=== PATIENT | female | born 1940 | race Caucasian/White ===

== ENCOUNTER → 2016-06-19 | Outpatient (CLI) | payer MEDICARE, BC ==
--- NOTE | 2016-06-19 12:33 | RADRPT ---
AMENDMENT: 06/19/2016 12:34:04 PM Hiram Morrison) Impression: Diffuse osteopenia. No change in mildly distracted mid patellar fracture Comparison: 05/29/2016 PROCEDURE: XR left knee. CLINICAL INDICATION: Pain/fracture TECHNIQUE: AP and lateral weightbearing views available for review. COMPARISON: None available FINDINGS: There is diffuse osteopenia. There is no change in the mildly distracted mid patellar fracture. No osseous lesions are identified. The joints are unremarkable. The soft tissues are unremarkable. IMPRESSION: Unremarkable examination RPTAT: [facility] .Hiram Willard MD, Date Time Electronically viewed and signed by .Hiram Willard MD, on 06/19/2016 12:33 .B/
== END | disposition home or self-care (01) ==
LOC: HKI 09:27
PROVIDERS: ATTEND Orthopaedic Surgery
DX: S82.035D Nondisplaced transverse fracture of left patella, subsequent encounter for closed fracture with routine healing (principal); M85.862 Other specified disorders of bone density and structure, left lower leg
CPT/HCPCS: 73560; G0463

== ENCOUNTER → 2016-07-10 | Outpatient (CLI) | payer MEDICARE, BC ==
--- NOTE | 2016-07-10 10:19 | RADRPT ---
PROCEDURE: XR left knee. CLINICAL INDICATION: Pain/fracture TECHNIQUE: AP and lateral weightbearing views available for review. COMPARISON: 05/29/2016 and 06/19/2016 FINDINGS: There is diffuse osteopenia. There is no change in the mildly distracted mid patellar fracture. No o sseous lesions are identified. The joints are unremarkable. The soft tissues are unremarkable. IMPRESSION: Diffuse osteopenia. No change in mildly distracted mid patellar fracture RPTAT: [facility] .Hiram Willard MD, Date Time Electronically viewed and signed by .Hiram Willard MD, on 07/10/2016 10:19 .B/
== END | disposition home or self-care (01) ==
LOC: HKI 08:47
PROVIDERS: ATTEND Orthopaedic Surgery
DX: S82.035D Nondisplaced transverse fracture of left patella, subsequent encounter for closed fracture with routine healing (principal); M25.562 Pain in left knee; W01.0XXD Fall on same level from slipping, tripping and stumbling without subsequent striking against object, subsequent encounter
CPT/HCPCS: 73560; G0463

== ENCOUNTER → 2017-09-01 | Outpatient (CLI) | END | disposition home or self-care (01) ==